=== PATIENT | female | born 1945 | race Caucasian/White ===

== ENCOUNTER → 2019-05-14 | Outpatient (CLI) | payer OTHER ==
[~2019-05-14] MED LIST: ADV250 IH; ALBU6.7H9 IH; ASPI-555 PO; AVENOVA OU; BUME1TAB6 PO; INSU100V SQ; INSU3INS3 SQ; METO25TA6 PO; OLME1TAB28 PO; RANI150C4 PO; ROSU20TA23 PO; TYL3 PO
== END | disposition home or self-care (01) ==
LOC: SHCH 10:31
PROVIDERS: ATTEND Internal Medicine Cardiovascular Disease
DX: I65.23 Occlusion and stenosis of bilateral carotid arteries (principal); I11.9 Hypertensive heart disease without heart failure; I06.9 Rheumatic aortic valve disease, unspecified
CPT/HCPCS: 93306; 93880

== ENCOUNTER → 2019-06-13 | Outpatient (CLI) | payer OTHER ==
--- NOTE | 2019-06-06 13:00 | NUR ---
PT WAS A NO SHOW FOR THIS DATE OF SERVICE
[~2019-06-13] VITALS: Ht 152.4 cm; Wt 91.2 kg
[~2019-06-13] MED LIST changes: +REGADENOSON 0.4 MG/5 ML PF SYG IVP SCH
== END | disposition home or self-care (01) ==
LOC: SHCH 08:48
PROVIDERS: ATTEND Internal Medicine Cardiovascular Disease
DX: R00.2 Palpitations (principal)
CPT/HCPCS: 78452; 93017; 96374; A9500 ×2; J2785